=== PATIENT | female | born 2000 | race Caucasian/White ===

== ENCOUNTER → 2022-05-24 | Day surgery (SDC) | payer BC ==
[~2022-05-24] MED LIST: BUPIVACAINE 0.25% 30ML SDV ONE; DEXAMETHASONE SOD PHOS INJ 4 MG/ML SDV ONE; FENTANYL CITRATE/PF 100MCG/2 ML INJ ONE; GLYCOPYRROLATE INJ 0.2 MG/ML VIAL ONE; LIDOCAINE HCL 2% LOCAL INJ 5 ML SDV VIAL INJ ONE; MIDAZOLAM HCL 2 MG/2 ML VIAL ONE; NEOSTIGMINE 1 MG/ML 10ML VIAL ONE; ONDANSETRON HCL INJ 2MG/ML 2ML 2 MG/ML VIAL ONE; POVIDONE IODINE 0.05% 0.05 % ML PO ONE; PROPOFOL IV EMULSION 10 MG/ML 20 ML VIAL ONE; SEVOFLURANE INHAL SOLN 250 ML PEN BTL ONE; ZYRTEC-D TABLE1 EACH PO
[2022-05-24 08:50] VITALS: BP 123/77
== END | disposition home or self-care (01) ==
LOC: OR 05:28
PROVIDERS: ATTEND Otolaryngology
DX: J35.03 Chronic tonsillitis and adenoiditis (principal)
CPT/HCPCS: 42821; 81025; 88304; J1100; J2001; J2405; J2704; J2710; J3010; J2250